=== PATIENT | male | born 1980 | race Caucasian/White ===

== ENCOUNTER 2017-02-10 11:00 | Inpatient (IN) | payer BC, OTHER ==
[~2017-02-10] VITALS: Ht 180.3 cm; Wt 77.6 kg
[2017-02-10] MEDS ORDERED: HYDR-3028 PO (14:05)
[2017-02-10] MEDS ORDERED: ESCI10TA PO (14:05)
[2017-02-10 15:08] LABS: *AMPHETAMINE, URINE NEGATIVE (NEGATIVE); *BARBITURATE, URINE NEGATIVE (NEGATIVE); *CANNABINOID, URINE NEGATIVE (NEGATIVE); *COCCAINE, URINE NEGATIVE (NEGATIVE); *OPIATE, URINE NEGATIVE (NEGATIVE); *PHENCYCLIDINE SCREEN,URINE NEGATIVE (NEGATIVE)
--- NOTE | 2017-02-10 15:30 | NUR ---
Admission Note VS: BP: 143/90 HR: 95, SpO2: 97% RA, RR: 18, Temp: 97.8 Pain: 2/10 (Headache) Height:5'11" Weight: 171LB Allergies: KATHRYN Pt is a 36 y/o male admitted to [facility] on 02/10/17 at 1430. Pt is under the care of Dr. Maciel for alcohol dependence. Pt denies suicidal and homicidal ideations at this time. Pt denies Chest Pain and SOB. Pt brought home medications with him, they have all been documented and reconciled. PT reports living with his and kids. His support system consists of his and friends. Upon assessment pt's skin integrity is intact. CIWA 6 upon admission. A/Ox4 and able to answer questions necessary for the admission process. Pt is Full Code. VS WNL, Regular Diet. Reports family hx of a alcoholism in father and grandfather. Pt denies having any seizures in the past . Pt reports having Dr. Delaney Baer as his PCP. Breathing is even and unlabored, SpO2 is 97% on RA. Pt ambulates with unsteady gait and will be placed on 1:1 for safety reasons. Pt reports regular daily BM. LBM on 02/10/17. Pt reports that he is a one pack a day smoker. 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 Dr. Maciel has been notified, pt has been placed on a 5 day Ativan taper. At this time his symptoms will be treated by PRN medications. Urine has been collected for UDS. All needs have been met. Pt has been oriented to the room and the unit. All safety measures in place per hospital policy. Bed in lowest position, side rails up x2 and padded, call-light within reach. Will continue to monitor. Substance Abuse: Alcohol: Pt reports drinking 1L of vodka daily for the past 2 years. Last Drink: 02/10/17 in the am, 2 beers and 2 mimosas.
[2017-02-10 16:16] LABS: BASOPHILS % (AUTO) 0.4 % (0.0-2.0); EOSINOPHILS # (AUTO) 0.1 K/uL (0.0-0.7); EOSINOPHILS % (AUTO) 1.2 % (0.0-7.0); HEMATOCRIT 55.3 % (40-50); LYMPHOCYTES # (AUTO) 3.4 K/UL (0.8-4.8); LYMPHOCYTES % (AUTO) 40.2 % (20.5-51.5); MEAN CORPUSCULAR HEMOGLOBIN 32.2 UUG (27.0-31.0); MEAN CORPUSCULAR HGB CONC 34 g/dL (32.0-37.0); MEAN CORPUSCULAR VOLUME 93.9 FL (82.0-92.0); MONOCYTES # (AUTO) 0.4 K/UL (0.1-1.30); MONOCYTES % (AUTO) 5.3 % (0.0-11.0); NEUTROPHILS # (AUTO) 4.6 K/UL (1.8-8.9); NEUTROPHILS % (AUTO) 52.9 % (38.5-71.5); PLATELET COUNT (AUTO) 274 K/UL (150-450); RED BLOOD CELL COUNT(AUTO) 5.89 MIL/UL (4.7-6.1); WHITE BLOOD COUNT (AUTO) 8.5 K/UL (4.0-11.2)
[2017-02-10 16:20] LABS: MAGNESIUM 2.2 mg/dL (1.8-2.4); POTASSIUM 4.1 mmol/L (3.5-5.1); TOTAL PROTEIN, SERUM 8.1 g/dL (6.4-8.2)
--- NOTE | 2017-02-10 18:20 | NUR ---
PRN Medications Administered PRN Motrin and Zofran for reported nausea and 5/10 headache.
--- NOTE | 2017-02-10 18:50 | NUR ---
Medication re-assessment Pt reports nausea has stopped. rates headache 2/10. Medications were effective.
--- NOTE | 2017-02-10 19:11 | NUR ---
End of Shift Endorsement given to nightshift nurse. Pt is a 36 y/o male admitted to [facility] on 02/10/17 at 1430. Pt is under the care of Dr. Maciel for alcohol dependence. Pt denies suicidal and homicidal ideations at this time. Pt denies Chest Pain and SOB. Pt brought home medications with him, they have all been documented and reconciled. PT reports living with his and kids. His support system consists of his and friends. Upon assessment pt's skin integrity is intact. CIWA 7 at 1600. Gave Pt PRN Zofran and Motrin. A/Ox4 and able to answer questions necessary for the admission process. Pt is Full Code. VS WNL, Regular Diet. Reports family hx of a alcoholism in father and grandfather. Pt denies having any seizures in the past . Pt reports having Dr. Delaney Baer as his PCP. Breathing is even and unlabored, SpO2 is 97% on RA. Pt ambulates with unsteady gait and will be placed on 1:1 for safety reasons. Pt reports regular daily BM. LBM on 02/10/17. Pt reports that he is a one pack a day smoker. 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 Dr. Maciel has been notified, pt has been placed on a 5 day Ativan taper. At this time his symptoms will be treated by PRN medications. Urine has been collected for UDS. All needs have been met. Pt has been oriented to the room and the unit. All safety measures in place per hospital policy. Bed in lowest position, side rails up x2 and padded, call-light within reach. Will continue to monitor.
[2017-02-10 20:00] VITALS: BP 132/103
--- NOTE | 2017-02-10 20:00 | NUR ---
Start of Shift Pt is a 36 year old male admitted for ETOH dependence, placed on 5 day Ativan taper. Pt reported consuming 1 liter of Vodka/daily for the past 2 years. PMH: Left shoulder surgery, Right wrist and stomach surgery. NKA, regular diet, fall/seizure precaution and full code. Upon assessment, pt presents with anxiety, reports chills throughout body, reports hot/cold sensations with mild headache, skin is clammy, noted with sweat, face is flushed, reports mild nausea, denies v/d. Respirations even/unlabored, denies SOB/chest pain, medications due. Safety measures in place, call light within reach, side rails up x2, bed locked and in low position. Will continue to monitor. Addendum: 02/11/17 at 0002 by SADIA PENA RN 1:1 sitter at bedside for safety
--- NOTE | 2017-02-10 20:20 | NUR ---
PRN Administration BP 132/103. Pt reports feeling anxious and restless. Clonidine 0.1mg PRN administered. Safety measures in place. Will continue to monitor.
--- NOTE | 2017-02-10 21:24 | NUR ---
PRN Reassessment/Administration BP 120/84. Pt reports feeling less anxious. Tylenol 650mg PRN administered for headache rated 6-7/10. Benadryl 50mg PRN administered for sleep. Safety measures in place. Will continue to monitor.
--- NOTE | 2017-02-10 22:24 | NUR ---
PRN Reassessment Pt is sleeping, no reports of discomfort. Respirations even/unlabored. Sitter at bedside for safety
[2017-02-11] VITALS: BP_SYST 104; BP_SYST 117; BP_DIAS 66; BP_DIAS 87
--- NOTE | 2017-02-11 | NUR ---
Vital Signs BP 104/66, pulse 70, resp 16, SpO2 97% room air, temp 98, no reports of pain CIWA deferred d/t pt sleeping, to assess while pt is awake as ordered. Safety measures in place. Will continue to monitor.
[2017-02-11 04:00] VITALS: BP 96/60
--- NOTE | 2017-02-11 04:00 | NUR ---
Vital Signs BP 96/60, pulse 64, resp 20, SpO2 98% room air, temp 98, no reports of pain CIWA deferred d/t pt sleeping, to assess while pt is awake as ordered. Safety measures in place. Will continue to monitor.
[2017-02-11 06:05] LABS: HEPATITIS B SURFACE AG Negative (Negative)
--- NOTE | 2017-02-11 07:00 | NUR ---
End of Shift Pt is a 36 year old male admitted for ETOH dependence, placed on 5 day Ativan taper. Pt reported consuming 1 liter of Vodka/daily for the past 2 years. PMH: Left shoulder surgery, Right wrist and stomach surgery. NKA, regular diet, fall/seizure precaution and full code. Upon assessment, pt presented with anxiety, reported chills throughout body, reported hot/cold sensations with mild headache, skin is clammy, noted with sweat, face flushed, reported mild nausea, denied v/d scheduled taper medications administered, CIWA 9. Clonidine 0.1mg PRN administered for elevated BP 132/103, effective BP decreased to 120/84. Tylenol 650mg PRN administered for headache rated 6-7/10 and Benadryl 50mg PRN administered for sleep, effective. 1:1 sitter at bedside for safety. Pt slept for 8 hours, intake of 1300 ml PO, voids x1 and stool x0. Safety measures in place, call light within reach, side rails up x2, bed locked and in low position. Endorsed to day shift nurse.
--- NOTE | 2017-02-11 07:30 | NUR ---
START OF SHIFT Pt is a 36 yr old male, A&OX3. Pt was admitted on 02/10/17 for ETOH Dependence and is on 5 day Ativan taper. Received report from rn night nurse. Pt received Benadryl PRN, Tylenol PRN and Clonidine PRN during the night. Medication was effective and slept for 8 hrs. Pt is currently on 1:1 sitter for unsteady gait. Will continue to evaluate gait during the day. Pt is in bed sleeping at this time with respirations even and unlabored. No acute distress noted. RR 18. Safety precautions are observed. Bed kept in low position and locked with side rails up x2. Call light is within reach. Will continue to monitor.
[2017-02-11 08:00] VITALS: BP 125/83
--- NOTE | 2017-02-11 09:30 | NUR ---
NSG NOTES Pt's urine drug screen was positive for Benzo. Director Of Mechanical Engineering asked pt in regards to pt being positive for Benzo. Pt states the only medication he is currently taken is Lexapro for depression and Vistaril for anxiety. Pt states he does not take any other medication and states he only drinks. Dr. Maciel is made aware.
--- NOTE | 2017-02-11 10:50 | NUR ---
ENDORSEMENT GIVEN Endorse pt to [facility] Lomas to continue with care.
--- NOTE | 2017-02-11 11:30 | NUR ---
ENDORSEMENT RECEIVED. PT AOX4. DENIES S/I AND H/I. NO DISTRESS NOTED. ALL NEEDS MET. WILL MONITOR AND CONTINUE PLAN OF CARE.
[2017-02-11 12:00] VITALS: BP 141/94
[2017-02-11 16:00] VITALS: BP 146/97
--- NOTE | 2017-02-11 18:25 | NUR ---
END OF SHIFT NOTE PT CONTINUED ON 5 DAY ATIVAN TAPER AND TOLERATED WELL. NO PRNS GIVEN DURING SHIFT DETOX MEDS ARE EFFECTIVE. PT ATTENDED GROUPS AND ACTIVITIES AND SOCIALIZED WITH PEERS. PT PRESENTED WITH TREMORS DURING SHIFT. LAST CIWA 7. ALL NEEDS MET. ALL SAFETY MEASURES IN PLACE. WILL ENDORSE TO NIGHT NURSE.
[2017-02-11 20:00] VITALS: BP 125/86
--- NOTE | 2017-02-11 20:00 | NUR ---
START OF SHIFT Received report from day shift nurse. Pt attended a group meeting and returned to his room after. He is a 36 yo male admitted to [facility] on 02/10 for ETOH dependence. He is A&O x4 and ambulatory. NKA, full code status, and on a regular diet. PMH of left shoulder surgery, right wrist surgery, and stomach surgery. On admission he reported drinking vodka 1 liter per day. He started a 5 day Ativan taper today. He is observed with facial flushing and mild tremors. Taper due tonight. Fall and seizure precautions in place. Bed is down with call light in reach.
--- NOTE | 2017-02-11 21:13 | NUR ---
PRN Benadryl Pt reports inability to sleep. PRN Benadryl administered.
[2017-02-12] VITALS: BP 117/87
--- NOTE | 2017-02-12 | NUR ---
0000 CIWA deferred CIWA ordered Q4HWA. Pt is lying in bed resting with eyes closed. Vital signs obtained. Safety measures in place.
[2017-02-12 04:00] VITALS: BP 120/90
--- NOTE | 2017-02-12 04:00 | NUR ---
0400 CIWA deferred CIWA ordered Q4HWA. Pt is lying in bed resting with eyes closed. Vital signs obtained. Safety measures in place.
--- NOTE | 2017-02-12 07:04 | NUR ---
END OF SHIFT Report provided to day shift nurse. Pt is lying in bed resting. He is a 36 yo male admitted to [facility] on 02/10 for ETOH dependence. He is A&O x4 and ambulatory. NKA, full code status, and on a regular diet. PMH of left shoulder surgery, right wrist surgery, and stomach surgery. On admission he reported drinking vodka 1 liter per day. He started a 5 day Ativan taper 02/11. Pt is compliant with treatment. PRN Benadryl administered. Last CIWA was 4. He drank 1295mL and slept for 8 hours. Fall and seizure precautions in place. Bed is down with call light in reach.
[2017-02-12 08:00] VITALS: BP 114/101
--- NOTE | 2017-02-12 08:05 | NUR ---
START OF SHIFT NOTE Received pt aox4. Patient awake and states he feels better. He was given no prns per night nurse. He is on 5 day Ativan taper. Last CIWA 4 this am at 0800. He slept for 8 hours. Encouraged pt to attend groups and activities. Encouraged pt to increase fluid intake to facilitate detox. Will monitor closely and offer help.
[2017-02-12 12:00] VITALS: BP 146/93
[2017-02-12 16:00] VITALS: BP 141/98
--- NOTE | 2017-02-12 18:26 | NUR ---
END OF SHIFT NOTE PT CONTINUED ON 5 DAY ATIVAN TAPER AND TOLERATED WELL. NO PRNS GIVEN DURING SHIFT DETOX MEDS ARE EFFECTIVE. PT ATTENDED GROUPS AND ACTIVITIES AND SOCIALIZED WITH PEERS. PT PRESENTED BRIGHTER AFFECT THIS SHIFT. LAST CIWA 4. ALL NEEDS MET. ALL SAFETY MEASURES IN PLACE. WILL ENDORSE TO NIGHT NURSE.
--- NOTE | 2017-02-12 19:15 | NUR ---
Start of Shift Note: Patient is a 36 y/o male admitted on 02/10/17 for ETOH dependence. Patient reported drinking 1 liter of Vodka daily for 2 years. Patient denies any past medical history, reported past surgical hx on his left shoulder, wrist & stomach. No seizure history noted. Patient is on a regular diet with no known food and drug allergies. Full Code status. Patient is on a 5-day Ativan taper and tolerating well. Last CIWA is 4. No PRN medications given during day shift. Patient is alert & oriented x4. No shortness of breath noted. Respiration even & unlabored. Abdomen soft & non-distended. No nausea/vomiting noted. Patient denies any pain & discomfort. Slight anxiety noted. Denies any hallucinations. Hand tremors felt but not seen. Safety measures in place. Bed locked in lowest position. Both side rails up. Call light within pt's reach. Will continue to monitor patient.
[2017-02-12 20:00] VITALS: BP 133/95
--- NOTE | 2017-02-12 21:28 | NUR ---
PRN Benadryl Patient requesting for medication to help him sleep. PRN Benadryl administered as ordered. Will continue to monitor patient.
--- NOTE | 2017-02-12 22:28 | NUR ---
PRN Reassessment PRN medication effective. Patient asleep in bed and appears comfortable. No s/s of distress noted. Safety measures in place. Will continue to monitor patient.
[2017-02-13] VITALS: BP 124/83
--- NOTE | 2017-02-13 07:01 | NUR ---
End of Shift Note: Patient had an uneventful night. Pt continues on his Ativan taper and tolerating well. Last CIWA noted is 3 @ 2000. Pt reported that medication is effective in controlling his withdrawal symptoms. Pt received PRN Benadryl for sleep and was effective. Patient observed most of the time in his room during my shift. Patient is alert & oriented x4. No s/s of distress noted. Patient remained stable and vitals WNL. Pt was able to sleep for a total of 7 hours. Pt consumed 2182 ml of fluids. Voided 3x with no bowel movement. Encourage pt to increase fluid intake. All needs attended & met. Safety measures in place. Will continue to monitor patient.
--- NOTE | 2017-02-13 07:02 | NUR ---
Start of Shift Notes: Start of Shift Notes: Received patient in his room. Alert and verbally responsive. Oriented x 4. Able to make needs known. Respirations even and unlabored. No SOB noted. Skin warm and dry to touch. Abdomen soft and non-distended with (+) BS in all 4 quadrants. No complains of N/V/D or constipation noted at this time. Bladder non-distended. No complains of dysuria noted. Voids independently. Ambulatory ad cass with steady gait. Patient is a 36 year old male admitted for ETOH dependence who was placed on a 5-day Ativan taper as ordered. No adverse reactions noted. Prior to admission, patient was using 1L of [place] daily x 2 years. This is the patient's first time in detox. Has past medical hx of left shoulder history, right wrist surgery, stomach surgery. NKA. FULL CODE. Regular diet. On fall and seizure precautions. NKA. FULL CODE. Regular diet. Educated patient on his current plan of care for the day and his medication regimen. Encouraged oral fluid intake and encouraged group participation to learn new skills to prevent relapse. Will continue to monitor closely.
[2017-02-13 08:00] VITALS: BP 120/96
--- NOTE | 2017-02-13 11:28 | NUR ---
Therapist prompted client about group times. Client reported he will be at all groups today.
[2017-02-13 12:00] VITALS: BP 136/89
--- NOTE | 2017-02-13 13:45 | NUR ---
Activity Group Note: Client did not attend.
[2017-02-13 16:00] VITALS: BP 128/92
--- NOTE | 2017-02-13 18:57 | NUR ---
End of Shift Notes: Patient continues to be on 5-day Ativan as ordered to manage symptoms related to ETOH withdrawal. VS monitored closely. No significant abnormalities noted. Withdrawal symptoms were closely monitored. Patients initial CIWA 3 patient presented with fine tremors, sweats and anxiety. Last CIWA 1 at 1600. Per patient Ativan has been helping him with his withdrawal symptoms. Patient actively participates in group. Compliant with care and treatment. Oral fluids encouraged. All needs met and attended. Will continue to monitor closely and endorse to next shift for continuity of care.
--- NOTE | 2017-02-13 18:57 | NUR ---
START OF SHIFT NOTE Patient is a 36 year old male admitted to [facility] on 02/10/2017 for Alcohol dependence, continue 5 Day Modified Ativan Taper since 02/11/2017. Patient tolerated well without ASE. Patient remains compliant with treatment. medications, and diet regime. Patient reports NKA, is on Full Code, Regular Diet, Fall and Seizures Precautions. Patient denies seizures history. PMH: Anxiety, Depression, Alcohol abuse. Patient reports past surgery history:" Left shoulder surgery, Right wrist surgery, Stomach surgery". Patient reports Substance use: ETOH "1 L of Vodka every day since 2014. Last used 2 beers and 2 Mimosas on 02/10/2017". Patient is "First time in detox". Upon endorsement, patient is alert and oriented x4 with steady gait. Speech is clear and soft. Patient is cooperative. CIWA 3. VS WNL. Patient denies pain now. Patient denies SI/HI. Respirations unlabored and even. Patient denies SOB and chest pain. Lungs Sounds are clear bilaterally. Bowel Sounds active in all x4 quadrants. Abdomen is soft and non-tender. PERRLA, brisk capillary refill, machine operator packaging equal and strong. Skin is intact, warm and dry to touch. Encourage fluids as tolerated. Patient attended activities groups. All needs met. Safety measures on place. Call light within reach, bed in lowest position and locked, padded rails up bilaterally rails up bilaterally. Patient endorsed by day shift nurse. Report received. Will continue to monitor closely.
[2017-02-13 20:00] VITALS: BP 144/101
--- NOTE | 2017-02-13 20:33 | NUR ---
PRN CLONIDINE 0.1 MG 1 TAB PO ADMINISTRATION PRN Clonidine 0.1 mg 1 tab PO administrated for BP: 144/101 as ordered with full glass of water. Patient tolerated well. All needs met. Safety measures on place. Call light within reach, bed in lowest position and locked, padded rails up bilaterally rails up bilaterally. Will continue to monitor closely.
--- NOTE | 2017-02-13 20:37 | NUR ---
PRN BENADRYL 50 MG 1 CAP PO ADMINISTRATION Patient c/o insomnia. PRN Benadryl 50 mg 1 capsule PO administrated with full glass of water as ordered. Patient tolerated well. All needs met. Safety measures on place. Call light within reach, bed in lowest position and locked, padded rails up bilaterally rails up bilaterally. Will continue to monitor closely.
--- NOTE | 2017-02-13 21:33 | NUR ---
RE-ASSESSMENT PRN Clonidine 0.1 mg 1 tab PO was effective: BP decreased from 144/101 to 126/80. All needs met. Safety measures on place. Call light within reach, bed in lowest position and locked, padded rails up bilaterally rails up bilaterally. Will continue to monitor closely.
--- NOTE | 2017-02-13 21:37 | NUR ---
RE-ASSESSMENT Patient is sleeping. Respirations even and unlabored. RR 16. PRN Benadryl 50 mg 1 capsule PO for insomnia administrated to patient @2036 was effective. All needs met. Safety measures on place. Call light within reach, bed in lowest position and locked, padded rails up bilaterally rails up bilaterally. Will continue to monitor closely.
[2017-02-14] VITALS: BP 112/81
[2017-02-14 04:00] VITALS: BP 109/83
--- NOTE | 2017-02-14 06:53 | NUR ---
END OF SHIFT NOTE: Patient is a 36 year old male admitted to [facility] on 02/10/2017 for Alcohol dependence, continue 5 Day Modified Ativan Taper. Patient tolerated well without ASE. Patient remains compliant with treatment. medications, and diet regime. Patient reports NKA, is on Full Code, Regular Diet, Fall and Seizures Precautions. Patient denies a history of withdrawal-induced seizures. PMH: Anxiety, Depression, Alcohol abuse. Patient reports past surgery history:" Left shoulder surgery, Right wrist surgery, and Stomach surgery". Last CIWA 3 @0400. CIWA taken when patient's alert during the night. Last VS @040: T: 97.6; BP: 109/83; HR: 75; RR:16; RA O2 SAT: 99%. Pain level: "0/10". Patient denies SI/HI. Respirations unlabored and even. Abdomen is soft and non-tender. Skin is intact, warm and dry to touch. Patient denies SI/HI. PRN Clonidine 0.1 mg 1 tab PO administrated @2032for BP 144/101 was effective, BP decreased @3 to 126/80. PRN Benadryl 50 mg 1 cap PO administrated for insomnia @2036 was effective. Patient slept 9 hours, intake 582 ml, voided x2. Encourage fluids as tolerated. All needs met. Safety measures on place. Call light within reach, bed in lowest position and locked, padded rails up bilaterally rails up bilaterally. Patient endorsed by day shift nurse. Addendum: 02/14/17 at 0656 by CK DE LA TORRE RN Patient slept 7 hours, intake 2220 ml, voided x3.
--- NOTE | 2017-02-14 07:30 | NUR ---
START OF SHIFT Pt 36 y/o male admitted for etoh dependence. Pt received in room on bed with eyes closed resting, but easily arousable to name. Pt alert and oriented to name, place, and time. Perrla. Skin warm and slightly moist to touch. Respirations even and unlabored. Bilateral hand tremors noted. It was reported that pt slept for 7 hours of sleep last night. Bed on lowest position with side rails x2 up for safety. Call light within reach. No distress noted at this time.
[2017-02-14 08:00] VITALS: BP 128/81
[2017-02-14 13:00] VITALS: BP 135/91
--- NOTE | 2017-02-14 14:35 | NUR ---
PRN pt with dj=504/92. pt states feels anxious.
--- NOTE | 2017-02-14 15:35 | NUR ---
PRN EVAL Pt with zm=361/72. Pt observed in room watching television.
[2017-02-14 16:00] VITALS: BP 121/97
--- NOTE | 2017-02-14 18:43 | NUR ---
END OF SHIFT Pt 36 y/o male admitted for etoh dependence. Pt alert and oriented to name, place, and time. Perrla. Skin warm and slightly moist to touch. Respirations even and unlabored. Bilateral hand tremors noted. Pt observed mostly in room today, but did attend group activity. Pt was seen by MD today. Pt medication compliant and tolerated well. No ASE noted. Bed on lowest position with side rails x2 up for safety. Call light within reach. No distress noted at this time.
--- NOTE | 2017-02-14 18:43 | NUR ---
START OF SHIFT NOTE Endorsed by outgoing day shift nurse patient is a 36 year old male presenting to [facility] on 02/10/2017 for Alcohol dependence, continue 5 Day Modified Ativan Taper since 02/11/2017. Patient tolerated well without ASE. Patient remains compliant with treatment. medications, and diet regime. Patient reports NKA, is on Full Code, Regular Diet, Fall and Seizures Precautions. Patient denies seizures history. Patient is alert and oriented x4 with steady gait. Speech is clear and soft. Patient is cooperative. CIWA 5. VS WNL. Patient denies SI/HI. Respirations unlabored and even. Patient denies SOB and chest pain. Lungs Sounds are clear bilaterally. Bowel Sounds active in all x4 quadrants. Abdomen is soft and non-tender. PERRLA, brisk capillary refill, box car washer equal and strong. Skin is intact, warm and dry to touch. Encouraged fluids as tolerated. Encouraged to attend groups activities. All needs met. Safety measures on place. Call light within reach, bed in lowest position and locked, padded rails up bilaterally rails up bilaterally. Will continue to monitor closely.
[2017-02-14 20:00] VITALS: BP 123/85
--- NOTE | 2017-02-14 21:49 | NUR ---
RE-ASSESSMENT Patient is sleeping. Respirations even and unlabored. RR 16. PRN Benadryl 50 mg 1 cap PO administrated @2048 for insomnia was effective. All needs met. Safety measures on place. Call light within reach, bed in lowest position and locked, padded rails up bilaterally rails up bilaterally. Will continue to monitor closely.
--- NOTE | 2017-02-15 | NUR ---
VS REFUSED AND COWS/CIWA DEFERRED Patient refused to be woken up for 0000 VS. COWS/CIWA deferred d/t patient sleeping to assess while patient is awake. Safety measures on place by hospital policy: Call light within reach; Bed in lowest position and locked; side rails up x2. Will continue to monitor.
--- NOTE | 2017-02-15 04:00 | NUR ---
VS REFUSED AND COWS/CIWA DEFERRED Patient refused to be woken up for 0400 VS. COWS/CIWA deferred d/t patient sleeping to assess while patient is awake. Safety measures on place by hospital policy: Call light within reach; Bed in lowest position and locked; side rails up x2. Will continue to monitor.
--- NOTE | 2017-02-15 06:55 | NUR ---
END OF SHIFT NOTE: Patient is a 36 year old male presenting to [facility] on 02/10/2017 for Alcohol dependence, continue 5 Day Modified Ativan Taper since 02/11/2017. Patient tolerated well without ASE. Patient remains compliant with treatment. medications, and diet regime. Patient reports NKA, is on Full Code, Regular Diet, Fall and Seizures Precautions. Patient denies a history of withdrawal-induced seizures. PMH: Anxiety, Depression, Alcohol abuse. Patient reports past surgery history:" Left shoulder surgery, Right wrist surgery, and Stomach surgery". Patient refused to be woken up for 0000 & 0400. VS, COWS/CIWA deferred d/t patient sleeping to assess while patient is awake. Last CIWA 6 @1999. CIWA taken when patient's alert. VS WNL. Patient denies SI/HI. Respirations unlabored and even. Abdomen is soft and non-tender. Skin is intact, warm and dry to touch. Patient denies SI/HI. PRN Benadryl 50 mg 1 cap PO administrated for insomnia @2048 was effective. Patient slept 9 hours, intake 1,355 ml, voided x3. Encourage fluids as tolerated. All needs met. Safety measures on place. Call light within reach, bed in lowest position and locked, padded rails up bilaterally rails up bilaterally. Report given. Patient endorsed to day shift nurse in stable condition.
--- NOTE | 2017-02-15 07:30 | NUR ---
START OF SHIFT Pt 36 y/o male admitted for etoh dependence. Pt received in room on bed with eyes closed resting, but easily arousable to name. Pt alert and oriented to name, place, and time. Perrla. Skin warm and slightly moist to touch. Respirations even and unlabored. Bilateral hand tremors noted. It was reported that pt slept for 9 hours of sleep last night. Bed on lowest position with side rails x2 up for safety. Call light within reach. No distress noted at this time.
[2017-02-15 08:12] VITALS: BP 118/81
[2017-02-15] MEDS ORDERED: DIPH50CA37 PO (11:53)
[2017-02-15] MEDS ORDERED: MULT-24 PO (11:53)
[2017-02-15] MEDS ORDERED: HYDR25CA PO (11:53)
[2017-02-15] MEDS ORDERED: GABA-532 PO (11:53)
[2017-02-15] MEDS ORDERED: IBUP-1953 PO (11:53)
[2017-02-15 12:00] VITALS: BP 140/94
[2017-02-15 16:00] VITALS: BP 124/80
--- NOTE | 2017-02-15 18:24 | NUR ---
END OF SHIFT Pt 36 y/o male admitted for etoh dependence. Pt alert and oriented to name, place, and time. Perrla. Skin warm and dry to touch. Respirations even and unlabored. Bilateral hand tremors noted slightly. Pt observed mostly in room today, but did attend group activity. Pt was seen by MD today. Pt medication compliant and tolerated well. No ASE noted. Bed on lowest position with side rails x2 up for safety. Call light within reach. No distress noted at this time.
--- NOTE | 2017-02-15 19:20 | NUR ---
START OF SHIFT Patient is a 36-year-old male admitted on 02/10/17 for ETOH dependence. Patient reported drinking 1 liter of vodka daily for years. Patient reported last drink on 02/10/17 prior to admission, total of 2 beers and 2 mimosas. Past medical history includes left shoulder surgery, right wrist surgery, and stomach surgery. Patient has completed a 5 day Ativan taper, tolerated well, scheduled for discharge tomorrow [facility]. Upon assessment, patient is awake and oriented x4, PERRLA, skin intact and warm to touch. Patients respirations are even and unlabored. Patient is on fall and seizure precautions with no history of seizure. Bed in lowest position, call light within reach. Will continue to monitor.
[2017-02-15 20:05] VITALS: BP 120/93
--- NOTE | 2017-02-15 21:16 | NUR ---
PRN BENADRYL Patient reports inability to sleep, requesting sleep aid. PRN Benadryl given PO. Safety measures in place, will continue to monitor; will reassess within 1 hour.
--- NOTE | 2017-02-15 22:16 | NUR ---
PRN BENADRYL REASSESSMENT PRN Benadryl effective, no adverse side effects noted or reported. Patient is sleeping in bed; respirations are even and unlabored. Safety measures in place, call light within reach. Will continue to monitor.
--- NOTE | 2017-02-16 | NUR ---
PT REFUSED TO BE WOKEN UP FOR MIDNIGHT VITAL SIGNS CIWA deferred due to patient sleeping, to assess while patient is awake as ordered. Safety measures in place, will continue to monitor.
--- NOTE | 2017-02-16 04:01 | NUR ---
PT REFUSED TO BE WOKEN UP FOR 0400 VITAL SIGNS CIWA deferred due to patient sleeping, to assess while patient is awake as ordered. Patient's respirations 16/min, even and unlabored. Safety measures in place, will continue to monitor.
--- NOTE | 2017-02-16 07:11 | NUR ---
END OF SHIFT Patient is a 36-year-old male admitted on 02/10/17 for ETOH dependence. Past medical history includes left shoulder surgery, right wrist surgery, and stomach surgery. Patient is FULL code, NKA and on regular diet. Patient has completed a 5 day Ativan taper, tolerated well, scheduled for discharge today [facility]. Patients last CIWA score was 1. PRN Benadryl was administered PO for inability to sleep at 2116. PRN Benadryl was effective. Patient slept total of 10hrs, intake 798mL, void x2, stool x0. Patients respirations are even and unlabored. Patient is on fall and seizure precautions with no history of seizure. Bed in lowest position, call light within reach. Will endorse to day shift.
[2017-02-16 08:00] VITALS: BP 126/76
--- NOTE | 2017-02-16 09:30 | NUR ---
Discharged: Patient discharged the unit at this time. Escorted off the unit by colorer machine. Educated patient on his discharge instructions. Returned all clothings, medications and valuables. Patient verbalized good understanding. All necessary discharge paperwork were signed and placed inside blue/black duffel bag. Patient was picked up by [employer] [facility].
== END 2017-02-16 09:30 | disposition other institution (70) | DRG 895 ==
LOC: SRC 13:16
PROVIDERS: ADMIT Internal Medicine; ATTEND Internal Medicine
PROC: HZ2ZZZZ Detoxification Services for Substance Abuse Treatment (ICD-10-PCS; principal; 2017-02-10)
PROC: HZ41ZZZ Group Counseling for Substance Abuse Treatment, Behavioral (ICD-10-PCS; principal; 2017-02-10)
PROC: HZ31ZZZ Individual Counseling for Substance Abuse Treatment, Behavioral (ICD-10-PCS; 2017-02-13)
DX: F10.232 Alcohol dependence with withdrawal with perceptual disturbance (principal); K70.9 Alcoholic liver disease, unspecified; I15.9 Secondary hypertension, unspecified; F32.9 Major depressive disorder, single episode, unspecified; Y90.8 Blood alcohol level of 240 mg/100 ml or more; Z81.1 Family history of alcohol abuse and dependence; Z83.3 Family history of diabetes mellitus; Z82.0 Family history of epilepsy and other diseases of the nervous system; Z82.49 Family history of ischemic heart disease and other diseases of the circulatory system; F17.210 Nicotine dependence, cigarettes, uncomplicated; F41.9 Anxiety disorder, unspecified; K21.9 Gastro-esophageal reflux disease without esophagitis
CPT/HCPCS: 36415; 70030-TC; 80307; 80346; 83690; 83735; 85025; 85610; 86580; 86592; 86705; 86803; 87340; 87806; A4663; G0480; J3411; Q0162; Q0163